=== PATIENT | male | born 1955 | race Two or more races ===

== ENCOUNTER 2019-08-08 00:56 | Emergency (ER) | payer OTHER ==
[~2019-08-08] VITALS: Ht 180.3 cm; Wt 100.0 kg
[2019-08-08] MEDS ORDERED: normal saline 1000ML IV soln IVB ONE (01:50)
[2019-08-08] MEDS ORDERED: morphine 4 MG/ML inj SYRINge IV PRN (01:50)
[2019-08-08] MEDS ORDERED: ondansetron/PF 4mg/2ml inj IV ONE (01:50)
[2019-08-08 02:11] LABS: BASOPHILS # (AUTO) 0.1 X10'3 (0-0.2); BASOPHILS % (AUTO) 1.3 % (0-1); EOSINOPHILS # (AUTO) 0.2 X10'3 (0-0.9); EOSINOPHILS % (AUTO) 2.3 % (0-6); HEMATOCRIT 44.1 % (42.0-52.0); HEMOGLOBIN 15.1 g/dl (14.0-17.9); LYMPHOCYTES # (AUTO) 3.2 X10'3 (1.1-4.8); LYMPHOCYTES % (AUTO) 42.7 % (21-51); MEAN CORPUSCULAR HEMOGLOBIN 30.6 PG (27.0-31.0); MEAN CORPUSCULAR HGB CONC 34.2 g/dL (33.0-36.5); MEAN CORPUSCULAR VOLUME 89.4 FL (78-98); MEAN PLATELET VOLUME 7.1 FL (7.4-10.4); MONOCYTES # (AUTO) 0.5 X10'3 (0-0.9); MONOCYTES % (AUTO) 6.9 % (2-12); NEUTROPHILS # (AUTO) 3.5 X10'3 (1.8-7.7); NEUTROPHILS % (AUTO) 46.8 % (42-75); PLATELET COUNT 195 X10'3 (140-440); RED BLOOD COUNT 4.93 X10'6 (4.70-6.10); RED CELL DISTRIBUTION WIDTH 13.4 % (11.5-14.5); WHITE BLOOD COUNT 7.4 X10'3 (4.5-11.0)
[2019-08-08 02:30] LABS: ALANINE AMINOTRANSFERASE 41 U/L (12-78); ALBUMIN 3.4 G/DL (3.4-5.0); ALBUMIN/GLOBULIN RATIO 1.1 (1.1-1.5); ALKALINE PHOSPHATASE 54 IU/L (46-116); ANION GAP 8 (8-16); ASPARTATE AMINO TRANSFERASE 15 U/L (10-37); BILIRUBIN,TOTAL 0.2 MG/DL (0.1-1.0); BLOOD UREA NITROGEN 15 MG/DL (7-18); BUN/CREATININE RATIO 13.2 (5.4-32.0); CALCIUM 8.5 MG/DL (8.5-10.1); CHLORIDE 108 MMOL/L (99-107); CREATININE 1.14 MG/DL (0.60-1.10); GLUCOSE 124 MG/DL (70-104); LIPASE 140 U/L (73-393); POTASSIUM 4.1 MMOL/L (3.5-5.1); SODIUM 141 MMOL/L (135-145); TOTAL CARBON DIOXIDE 25.5 MMOL/L (24-32); TOTAL PROTEIN 6.4 G/DL (6.4-8.2); eGFR 65 ML/MIN
[2019-08-08 03:36] VITALS: BP 118/74
[2019-08-09] MEDS ORDERED: RANI150T8 PO (13:29)
[2019-08-09] MEDS ORDERED: ACET-2119 PO (13:29)
[2019-08-09] MEDS ORDERED: NICO-687 TD (13:29)
[2019-08-09] MEDS ORDERED: DIPH25CA83 PO (13:29)
[2019-08-09] MEDS ORDERED: NICO2GUM29 PO (13:29)
[2019-08-09] MEDS ORDERED: GABA-532 PO (13:29)
[2019-08-09] MEDS ORDERED: CITA40TA22 PO (13:29)
[2019-08-09] MEDS ORDERED: CHOL100044 PO (13:35)
== END 2019-08-08 03:37 | disposition home or self-care (01) ==
LOC: ER 00:59
DX: R10.31 Right lower quadrant pain (principal); J44.9 Chronic obstructive pulmonary disease, unspecified; R19.7 Diarrhea, unspecified; E11.9 Type 2 diabetes mellitus without complications; Z88.5 Allergy status to narcotic agent
CPT/HCPCS: 36415; 74176; 80053; 83690; 85025; 96361; 96374; 96375; 99284; J2270; J2405; J7030

== ENCOUNTER 2019-08-09 12:08 | Observation (INO) | payer OTHER ==
[2019-08-09] VITALS (13 sets, daily range): BP systolic 103–126; BP diastolic 54–84
[~2019-08-09] VITALS: Ht 177.8 cm; Wt 102.3 kg
--- NOTE | 2019-08-09 13:19 | NUR ---
Received call from surgery. OR will be able to sweet pickle maker Pt between [phone] to take for surgery. NPO order to be faxed over.
[2019-08-09] MEDS ORDERED: RANI150T8 PO (13:29)
[2019-08-09] MEDS ORDERED: CITA40TA22 PO (13:29)
[2019-08-09] MEDS ORDERED: NICO2GUM29 PO (13:29)
[2019-08-09] MEDS ORDERED: DIPH25CA83 PO (13:29)
[2019-08-09] MEDS ORDERED: GABA-532 PO (13:29)
[2019-08-09] MEDS ORDERED: ACET-2119 PO (13:29)
[2019-08-09] MEDS ORDERED: NICO-687 TD (13:29)
[2019-08-09] MEDS ORDERED: CHOL100044 PO (13:35)
[2019-08-09] MEDS ORDERED: ketorolac tromethamine 15mg/ml inj. IV ONE (13:35)
[2019-08-09] MEDS ORDERED: ondansetron/PF 4mg/2ml inj IV ONE (14:35)
[2019-08-09] MEDS ORDERED: morphine 4 MG/ML inj SYRINge IV ONE (14:35)
[2019-08-09] MEDS ORDERED: BUPIVAcaine/PF 2.5 mg/ml (0.25%) 30ml vial ONE (15:49)
[2019-08-09] MEDS ORDERED: ceFAZolin 1000mg inj ONE ×3 (15:49→16:36)
--- NOTE | 2019-08-09 15:57 | NUR ---
OR at bedside
[2019-08-09] MEDS ORDERED: sevoflurane 250ml liquid IH ONE (16:15)
[2019-08-09] MEDS ORDERED: ondansetron/PF 4mg/2ml inj ONE (16:15)
[2019-08-09] MEDS ORDERED: fentaNYL /PF 50mcg/ml 5ml ampule ONE (16:22)
[2019-08-09] MEDS ORDERED: midazolam 2 mg/2 ml injection ONE (16:22)
[2019-08-09] MEDS ORDERED: rocuronium 10mg/ml inj IV ONE (16:24)
[2019-08-09] MEDS ORDERED: LIDOcaine 2% (20mg/ml) 5ml vial ONE (16:25)
[2019-08-09] MEDS ORDERED: propofol inj 20 ML IV ONE (16:25)
[2019-08-09] MEDS ORDERED: ringers solution, lacted 1,000 ML IV SCH (16:58)
[2019-08-09] MEDS ORDERED: morphine 4 MG/ML inj SYRINge IV PRN ×2 (17:00)
[2019-08-09] MEDS ORDERED: ondansetron/PF 4mg/2ml inj IV PRN ×2 (17:00→17:40)
[2019-08-09] MEDS ORDERED: meperidine/PF 25mg/ml syringe IV PRN ×3 (17:00)
[2019-08-09] MEDS ORDERED: proCHLORperazine 10 MG/2 ml inj IV PRN (17:00)
[2019-08-09] MEDS ORDERED: dexamethasone sod phosphate 4mg/ml inj. ONE (17:08)
[2019-08-09] MEDS ORDERED: glycopyrrolate 0.2mg/ml inj ONE (17:32)
[2019-08-09] MEDS ORDERED: ketorolac trometh. 30mg/ml inj. ONE (17:36)
[2019-08-09] MEDS ORDERED: magnesium hydroxide 30ml (MOM) UD suspension PO PRN (17:40)
[2019-08-09] MEDS ORDERED: mag hydrox/Alum hydrox/simeth 30ml oral suspension PO PRN (17:40)
[2019-08-09] MEDS ORDERED: morphine 2 MG/ML inj. syringe IV PRN (17:40)
[2019-08-09] MEDS ORDERED: HYDROcodone/acetaminophen 5mg/325mg tablet PO PRN (17:40)
[2019-08-09] MEDS ORDERED: acetaminophen 325mg tablet PO PRN (17:40)
--- NOTE | 2019-08-09 17:45 | NUR ---
Received from OR via BED , accompanied by Anesthesiologist DR FOUNTAIN and report given by Anesthesiolgist. PATIENT WAKING UP, DENIES PAIN, V/S WNL, NEUROVASCULAR CHECKS INTACT, 20G PIV RUE, SCD ON, BANDAIDS TO LAP SIGHTS OF ABDOMEN CDI.
--- NOTE | 2019-08-09 18:30 | NUR ---
Patient in room [facility] 357. I have received report from power and recovery supervisor and had the opportunity to ask questions and will assume patient care upon arrival to room 357A. Addendum: 08/09/19 at 1911 by Jodi Rojas RN Amended: Links added.
--- NOTE | 2019-08-09 18:35 | NUR ---
PATIENT A&0X4, DENIES PAIN, V/S WNL, NEUROVASCULAR CHECKS INTACT, 20G PIV RUE, SCD ON, BANDAIDS TO LAP SIGHTS OF ABDOMEN CDI. pATIENT TAKEN TO SURGICAL AND HOOKED UP TO MONITORS IN ROOM AND REPORT GIVEN TO INSTRUMENT DESIGNER WHO HAS TAKEN OVER PATIENT CARE.
--- NOTE | 2019-08-09 18:55 | NUR ---
pt arrived in the bed on the floor. no complaints at this time. orientated to the room call light in hand and postop vitals started. pt given ice chips to suck on.
--- NOTE | 2019-08-09 19:15 | NUR ---
2 large bandaides to abd noted dry and intact. pt given sips of water.
[2019-08-09] MEDS: heparin, porcine 5000 units/ml vial SQ SCH (20:00)
--- NOTE | 2019-08-09 21:00 | NUR ---
watching tv no complaints given chicken broth per request.
[2019-08-09] MEDS: HYDROcodone/acetaminophen 10/325mg tab PO PRN (22:00)
--- NOTE | 2019-08-09 22:00 | NUR ---
medicated for pain with po norco then assisted pt in getting up to ambulate in the ward did 3 laps 900ft tolerated well. assisted in getting back to bed and jello given started to hear a few sluggish bowel sounds right mid quad. is teaching done and pitcher of water given to the pt.
--- NOTE | 2019-08-10 00:20 | NUR ---
pt had accidently pulled his iv out. up in halls ambulating x4 laps 120feet and then back to bed and new iv start right forearm x1 stick and then medicated for c/o abd pain with 2mg of morphine for it. 0020 to 012o.
--- NOTE | 2019-08-10 02:00 | NUR ---
pt resting without changes
--- NOTE | 2019-08-10 04:00 | NUR ---
up ambulating in the ward.
[2019-08-10] MEDS: normal saline 1000ml 1,000 ML IV SCH ×3 (05:14→13:38)
--- NOTE | 2019-08-10 05:21 | NUR ---
pt using Is unit 3000 to 4000 x5.
[2019-08-10 06:30] VITALS: BP 109/75
[2019-08-10 06:33] LABS: HEMOGLOBIN A1C 5.5 % (4.5-6.2)
[2019-08-10 06:37] LABS: BASOPHILS % (AUTO) 0.1 % (0-1); EOSINOPHILS % (AUTO) 0 % (0-6); HEMATOCRIT 42.1 % (42.0-52.0); HEMOGLOBIN 14.4 g/dl (14.0-17.9); LYMPHOCYTES % (AUTO) 10.3 % (21-51); MEAN CORPUSCULAR HEMOGLOBIN 30.7 PG (27.0-31.0); MEAN CORPUSCULAR HGB CONC 34.1 g/dL (33.0-36.5); MEAN CORPUSCULAR VOLUME 90.1 FL (78-98); MEAN PLATELET VOLUME 7.8 FL (7.4-10.4); MONOCYTES # (AUTO) 0.2 X10'3 (0-0.9); MONOCYTES % (AUTO) 2.2 % (2-12); NEUTROPHILS # (AUTO) 8.2 X10'3 (1.8-7.7); NEUTROPHILS % (AUTO) 87.4 % (42-75); PLATELET COUNT 197 X10'3 (140-440); RED BLOOD COUNT 4.67 X10'6 (4.70-6.10); RED CELL DISTRIBUTION WIDTH 13.2 % (11.5-14.5); WHITE BLOOD COUNT 9.4 X10'3 (4.5-11.0)
--- NOTE | 2019-08-10 06:40 | NUR ---
Patient in room [facility] 357. I have received report from JADE Zapata and had the opportunity to ask questions and assume patient care.
--- NOTE | 2019-08-10 06:48 | NUR ---
Problems reprioritized. Patient report given, questions answered & plan of care reviewed with Jad Mora pt met with her and up again to walk the halls the 4th time since arriving to the floor. pt did pass sm amount of gas. jad will address pt's need for nicotine gum and patch and address the brown.. Addendum: 08/10/19 at 0652 by Jodi Rojas RN Amended: Links added.
[2019-08-10 06:50] LABS: ALBUMIN 3.2 G/DL (3.4-5.0); ANION GAP 13 (8-16); BLOOD UREA NITROGEN 18 MG/DL (7-18); BUN/CREATININE RATIO 18.2 (5.4-32.0); CALCIUM 8.2 MG/DL (8.5-10.1); CHLORIDE 104 MMOL/L (99-107); CREATININE 0.99 MG/DL (0.60-1.10); GLUCOSE 128 MG/DL (70-104); POTASSIUM 4.2 MMOL/L (3.5-5.1); SODIUM 139 MMOL/L (135-145); TOTAL CARBON DIOXIDE 22.1 MMOL/L (24-32); eGFR 76 ML/MIN
[2019-08-10] MEDS: heparin, porcine 5000 units/ml vial SQ SCH (10:00)
[2019-08-10] MEDS ORDERED: nicotine prolacrilex 2mg gum BC PRN (10:10)
[2019-08-10] MEDS: HYDROcodone/acetaminophen 10/325mg tab PO PRN (10:13)
[2019-08-10] MEDS ORDERED: NICOTINE 2MG GUM PO PRN (10:15)
[2019-08-10 11:00] VITALS: BP 124/77
--- NOTE | 2019-08-10 14:15 | NUR ---
DC inst provided to pt. IV DC'd, tip intact.
== END 2019-08-10 14:54 | disposition home or self-care (01) ==
LOC: ER 12:08 → SUR 3N 19:00
PROVIDERS: ADMIT Family Medicine; ATTEND Family Medicine
DX: K40.90 Unilateral inguinal hernia, without obstruction or gangrene, not specified as recurrent (principal); J44.9 Chronic obstructive pulmonary disease, unspecified; E11.9 Type 2 diabetes mellitus without complications; F32.9 Major depressive disorder, single episode, unspecified; Z90.79 Acquired absence of other genital organ(s); F17.210 Nicotine dependence, cigarettes, uncomplicated; Z79.899 Other long term (current) drug therapy; Z88.8 Allergy status to other drugs, medicaments and biological substances
CPT/HCPCS: 36415; 49650; 80048; 82948; 83036; 85025; 87081; 93005; 96372; 96374; 96375; 96376; 97161; 97530; 99284; C1713; C1781; G0378; J0690; J1100; J1644; J1885; J2001; J2175; J2250; J2270; J2405; J2704; J3010; J3490; J7030; J7120; A4215; A4314; A4618

== ENCOUNTER 2022-09-20 05:46 | Inpatient (IN) | payer OTHER ==
[2022-09-15 14:47] LABS: BASOPHILS # (AUTO) 0.1 X10'3 (0-0.2); BASOPHILS % (AUTO) 0.9 % (0-1); EOSINOPHILS # (AUTO) 0.2 X10'3 (0-0.9); EOSINOPHILS % (AUTO) 2.5 % (0-6); LYMPHOCYTES # (AUTO) 3.1 X10'3 (1.1-4.8); LYMPHOCYTES % (AUTO) 41.8 % (21-51); MEAN CORPUSCULAR HEMOGLOBIN 29.5 PG (27.0-31.0); MEAN CORPUSCULAR HGB CONC 33.7 g/dL (33.0-36.5); MEAN CORPUSCULAR VOLUME 87.4 FL (78-98); MEAN PLATELET VOLUME 7.4 FL (7.4-10.4); MONOCYTES # (AUTO) 0.6 X10'3 (0-0.9); MONOCYTES % (AUTO) 8.2 % (2-12); NEUTROPHILS # (AUTO) 3.5 X10'3 (1.8-7.7); NEUTROPHILS % (AUTO) 46.6 % (42-75); PRE OP HEMATOCRIT 47.7 % (42.0-52.0); PRE OP HEMOGLOBIN 16.1 g/dL (14.0-17.9); PRE OP PLATELET COUNT 255 X10'3 (140-440); RED BLOOD COUNT 5.45 X10'6 (4.70-6.10); RED CELL DISTRIBUTION WIDTH 13.9 % (11.5-14.5)
[2022-09-15 14:48] LABS: HEMOGLOBIN A1C 6.2 % (4.5-6.2)
[2022-09-15 14:59] LABS: ALBUMIN 3.7 G/DL (3.4-5.0); ALBUMIN/GLOBULIN RATIO 1.1 (1.1-1.5); ALKALINE PHOSPHATASE 67 IU/L (46-116); BLOOD UREA NITROGEN 11 MG/DL (7-18); BUN/CREATININE RATIO 9.2 (5.4-32.0); CALCIUM 8.7 MG/DL (8.5-10.1); CHLORIDE 104 MMOL/L (99-107); CREATININE 1.19 MG/DL (0.60-1.10); PRE OP ALT 51 U/L (30-65); PRE OP ANION GAP 11 (8-16); PRE OP AST 16 U/L (10-37); PRE OP BILIRUB, TOTAL 0.2 MG/DL (0.0-1.0); PRE OP GLUCOSE 171 MG/DL (70-104); PRE OP POTASSIUM 4.3 MMOL/L (3.4-5.1); PRE OP SODIUM 139 MMOL/L (135-145); TOTAL CARBON DIOXIDE 24.2 MMOL/L (24-32); eGFR 61 ML/MIN
[~2022-09-20] VITALS: Ht 177.8 cm; Wt 107.0 kg
[2022-09-20] VITALS (18 sets, daily range): BP systolic 103–150; BP diastolic 70–87
[~2022-09-20 05:46] MED LIST: ACET-75 PO; ALBU8HFA PO; CETI10TA15 PO; CHOL100044 PO; CITA40TA22 PO; CYAN250010 PO; DICL20GE TOP; GABA-532 PO; KETO5DRO11 OP; MELA3TAB39 PO; METF-436 PO; OMEP40CA21 PO; TIOT18CA3 INH; albuterol 2.5 MG/3 ML nebule NEB ONE; ceFAZolin inj. 2,000 MG in dextrose 5%-water 100 ML IV ONE; famotidine 20mg tablet PO ONE; ringers solution, lacted 1,000 ML IV SCH; tranexamic acid 650mg tablet PO ONE; vancomycin 1,500 MG in NS 300ml IV soln IV ONE
--- NOTE | 2022-09-20 06:30 | NUR ---
PREPPED PT FOR SURGERY, PEDAL PULSES STRONG, MARKED. CMS GOOD IN BOTH LOWER EXTREMITIES PT IS COMPLAINING OF ANXIETY. PT STATES THAT HE USED THE SPECIAL SOAP TO SHOWER WITH FOR THE PAST 5 DAYS INCLUDING THIS MORNING. HE ALSO USED THE MURPURICIN OINTMENT IN HIS NOSE. PT STATES HE READ THE PACKAGE OF INFORMATION AND WATCHED THE ONLINE VIDEO OF THE PROCEDURE. PT ALSO DRANK COFFEE WITH CREAMER AT 0130. DR BOBO NOTIFIED, NO ADDITIONAL ORDERS RECEIVED.
[2022-09-20] MEDS ORDERED: ketorolac trometh. 30mg/ml inj. ONE (08:01)
[2022-09-20] MEDS ORDERED: ROPIVAcaine 0.5% (5mg/ml) 30ml vial ONE ×3 (08:01→08:36)
[2022-09-20] MEDS ORDERED: cloNIDine hcl/PF 100mcg/ml inj ONE (08:36)
[2022-09-20] MEDS ORDERED: fentaNYL/PF 50MCG/1 ML 2ML syringe ONE (08:59)
[2022-09-20] MEDS ORDERED: MIDAZolam 1 MG/ML 5ML VIAL ONE (08:59)
[2022-09-20] MEDS ORDERED: morphine /PF 1mg/ml 10ml inj. ONE (09:00)
[2022-09-20] MEDS ORDERED: propofol inj 20 ML IV ONE ×5 (10:00→11:13)
[2022-09-20] MEDS ORDERED: dexamethasone sod phosphate 4mg/ml inj. ONE (10:01)
[2022-09-20] MEDS ORDERED: ePHEDrine 50MG/ML INJ. ONE (10:01)
[2022-09-20] MEDS ORDERED: naloxone 0.4 mg/ml inj IV PRN ×2 (11:25→12:20)
[2022-09-20] MEDS ORDERED: ringers solution, lacted 1,000 ML IV SCH (11:25)
[2022-09-20] MEDS ORDERED: morphine 4 MG/ML inj SYRINge IV PRN (11:25)
[2022-09-20] MEDS ORDERED: labetalol 20mg/4ml (5mg/ml) syringe IV PRN (11:25)
[2022-09-20] MEDS ORDERED: hydrALAZINE 20mg/ml inj. IV PRN (11:25)
[2022-09-20] MEDS ORDERED: meperidine/PF 25mg/ml syringe IV PRN (11:25)
[2022-09-20] MEDS ORDERED: morphine 2 MG/ML inj. syringe IV PRN (11:25)
[2022-09-20] MEDS ORDERED: HYDROmorphone/PF 0.2 MG/ML SYRINGE IV PRN ×2 (11:25)
[2022-09-20] MEDS ORDERED: ondansetron/PF 4mg/2ml inj IV PRN ×3 (11:25→12:20)
[2022-09-20] MEDS ORDERED: diphenhydrAMINE 50 mg/ml inj IV PRN (11:25)
[2022-09-20] MEDS ORDERED: proCHLORperazine 10 MG/2 ml inj IV PRN (11:25)
[2022-09-20] MEDS ORDERED: acetaminophen 1,000mg/100ml IV 100 ML IV PRN (11:25)
[2022-09-20] MEDS ORDERED: diphenhydrAMINE 50 mg/ml inj ONE (11:27)
[2022-09-20] MEDS ORDERED: cetirizine 10mg tablet PO PRN (12:20)
[2022-09-20] MEDS ORDERED: acetaminophen 325mg tablet PO PRN (12:20)
[2022-09-20] MEDS ORDERED: HYDROmorphone inj. 0.5 MG/0.5 ML DISP.SYRIN IV PRN (12:20)
[2022-09-20] MEDS ORDERED: HYDROmorphone 1 mg/ml syringe IV PRN (12:20)
[2022-09-20] MEDS: potassium cl 20mEq in 1/2 NS 1,000 ML IV SCH ×2 (12:20→16:16)
[2022-09-20] MEDS ORDERED: bisacodyl 10mg suppository rectal RC PRN (12:20)
[2022-09-20] MEDS ORDERED: non-formulary drug (Acetaminophen 2 TAB) PO PRN (12:20)
[2022-09-20] MEDS ORDERED: magnesium hydroxide 30ml (MOM) UD suspension PO PRN (12:20)
[2022-09-20] MEDS ORDERED: Ketotifen Fumarate OP PRN (12:20)
[2022-09-20] MEDS ORDERED: HYDROcodone/acetaminophen 10/325mg tab PO PRN ×2 (12:20)
[2022-09-20] MEDS ORDERED: DICLOFENAC SODIUM TOP PRN (12:20)
[2022-09-20] MEDS ORDERED: diphenhydrAMINE 25mg capsule PO PRN ×2 (12:20)
[2022-09-20] MEDS ORDERED: oxyCODONE IR 5mg (immed. release) tablet PO PRN (12:20)
--- NOTE | 2022-09-20 12:20 | NUR ---
Received from OR via BED, accompanied by Anesthesiologist and report given by Anesthesiologist. PATIENT WAKING UP, NO S/S OF PAIN, V/S WNL, SCD ON, 18G TO LUE, drsg to LEFT KNEE CDI with POWDER PACK COLD. NEUROVASCULAR CHECKS INTACT
[2022-09-20] MEDS ORDERED: albuterol 2.5 MG/3 ML nebule NEB PRN (12:55)
[2022-09-20] MEDS: naloxone 2mg/2ml inj 2 MG in normal saline 500ml IV soln 500 ML IV PRN ×2 (13:00→13:37)
--- NOTE | 2022-09-20 13:20 | NUR ---
PATIENT A&OX4, DENIES PAIN, V/S WNL, SCD ON, 18G TO LUE, drsg to LEFT KNEE CDI with POWDER PACK COLD. NEUROVASCULAR CHECKS INTACT.PATIENT TAKEN TO ROOM WITH ALL BELONGINGS AND HOOKED UP TO MONITORS IN ROOM AND GIVEN CALL LIGHT, REPORT GIVEN TO RN WHO HAS TAKEN OVER PATIENT CARE.
--- NOTE | 2022-09-20 13:30 | NUR ---
Recived report from Salvador HANSEN, Patient setteled in room, call light given and education on how to use. Post-op Vitals started.
[2022-09-20] MEDS ORDERED: acetaminophen 325mg tablet PO SCH (14:00)
[2022-09-20] MEDS ORDERED: ipratropium 0.5 MG/2.5ML nebule IH SCH (14:00)
[2022-09-20] MEDS ORDERED: ceFAZolin/D5W- 1GM premix 50 ML IV SCH (16:00)
--- NOTE | 2022-09-20 17:37 | NUR ---
f/c d/c per Dr Ding verbal order
--- NOTE | 2022-09-20 18:47 | NUR ---
Received report of Verbal order for ok to discharge once Jacobs removed and Patient has voided.
--- NOTE | 2022-09-20 18:48 | NUR ---
Problems reprioritized. Patient report given, questions answered & plan of care reviewed with Gayla TRAN.
--- NOTE | 2022-09-20 19:25 | NUR ---
dcd iv ,pt christie pain.no complications noted.
--- NOTE | 2022-09-20 19:52 | NUR ---
Pt discharged at 1950 per wheelchair with family, in stable condition. Pt had belongings with him and DC instructions givn. All questions answerd.
[2022-09-20] MEDS ORDERED: metFORMIN 500mg tablet PO SCH (20:00)
[2022-09-20] MEDS ORDERED: vancomycin/NS 1 GM ADD-VANTAGE 250 ML IV SCH (20:00)
[2022-09-20] MEDS ORDERED: gabapentin 300mg capsule PO SCH (21:00)
[2022-09-20] MEDS ORDERED: citalopram 20mg tablet PO SCH (21:00)
[2022-09-20] MEDS ORDERED: Melatonin 3mg tablet PO SCH (21:00)
[2022-09-20] MEDS ORDERED: sennosides 8.6mg tablet PO SCH (21:00)
[2022-09-21] MEDS ORDERED: pantoprazole 40mg Tablet.DR PO SCH (08:00)
[2022-09-21] MEDS ORDERED: cholecalciferol (vitamin D3) 1,000 unit (25mcg) tablet PO SCH (08:00)
[2022-09-21] MEDS ORDERED: cyanocobalamin 500mcg tablet PO SCH (08:00)
[2022-09-21] MEDS ORDERED: aspirin 325mg tablet PO SCH (08:30)
[2022-09-22] MEDS ORDERED: acetaminophen 325mg tablet PO PRN (12:20)
== END 2022-09-20 19:50 | disposition home or self-care (01) | DRG 470 ==
LOC: PAS IN 05:46 → SUR 3N 13:23
PROVIDERS: ADMIT Orthopaedic Surgery; ATTEND Orthopaedic Surgery
PROC: 0SRD0J9 Replacement of Left Knee Joint with Synthetic Substitute, Cemented, Open Approach (ICD-10-PCS; principal; 2022-09-20 08:54)
DX: M17.32 Unilateral post-traumatic osteoarthritis, left knee (principal)
CPT/HCPCS: 36415; 80053; 82948; 83036; 85025; 87081; 93005; 94640; 94760; 97116; 97161; A4215; A7000; C1713; C1758; C1776; G0378; J0690; J0735; J1100; J1170; J1200; J1885; J2250; J2274; J2310; J2704; J2795; J3010; J3370; J3480; J3490; J7040; J7060; J7120

== ENCOUNTER 2022-09-30 18:01 | Emergency (ER) | payer OTHER, MEDICARE, MEDICAID ==
[~2022-09-30] VITALS: Ht 180.3 cm; Wt 109.0 kg
[~2022-09-30 18:01] MED LIST changes: -albuterol 2.5 MG/3 ML nebule NEB ONE; -ceFAZolin inj. 2,000 MG in dextrose 5%-water 100 ML IV ONE; -famotidine 20mg tablet PO ONE; -ringers solution, lacted 1,000 ML IV SCH; -tranexamic acid 650mg tablet PO ONE; -vancomycin 1,500 MG in NS 300ml IV soln IV ONE
[2022-09-30 18:43] VITALS: BP 139/88
[2022-09-30 19:37] LABS: EOSINOPHILS # (AUTO) 0.3 X10'3 (0-0.9); HEMOGLOBIN 10.8 g/dl (14.0-17.9); MEAN PLATELET VOLUME 6.8 FL (7.4-10.4)
[2022-09-30 19:39] LABS: BASOPHILS % (AUTO) 0.9 % (0-1); EOSINOPHILS % (AUTO) 5.5 % (0-6); HEMATOCRIT 31.9 % (42.0-52.0); LYMPHOCYTES # (AUTO) 1.3 X10'3 (1.1-4.8); MEAN CORPUSCULAR HEMOGLOBIN 29.3 PG (27.0-31.0); MEAN CORPUSCULAR HGB CONC 33.9 g/dL (33.0-36.5); MEAN CORPUSCULAR VOLUME 86.7 FL (78-98); MONOCYTES # (AUTO) 0.6 X10'3 (0-0.9); MONOCYTES % (AUTO) 11.6 % (2-12); NEUTROPHILS # (AUTO) 3.1 X10'3 (1.8-7.7); PLATELET COUNT 275 X10'3 (140-440); RED BLOOD COUNT 3.68 X10'6 (4.70-6.10); RED CELL DISTRIBUTION WIDTH 13.7 % (11.5-14.5); WHITE BLOOD COUNT 5.3 X10'3 (4.5-11.0)
[2022-09-30 19:59] LABS: ALANINE AMINOTRANSFERASE 27 U/L (12-78); ALBUMIN 3.1 G/DL (3.4-5.0); ALBUMIN/GLOBULIN RATIO 0.8 (1.1-1.5); ALKALINE PHOSPHATASE 68 IU/L (46-116); ANION GAP 7 (8-16); ASPARTATE AMINO TRANSFERASE 15 U/L (10-37); BILIRUBIN,TOTAL 0.4 MG/DL (0.1-1.0); BLOOD UREA NITROGEN 12 MG/DL (7-18); BUN/CREATININE RATIO 13.5 (5.4-32.0); C-REACTIVE PROTEIN 7.42 MG/DL (0.0-0.5); CHLORIDE 102 MMOL/L (99-107); CREATININE 0.89 MG/DL (0.60-1.10); GLUCOSE 154 MG/DL (70-104); POTASSIUM 4.4 MMOL/L (3.5-5.1); SODIUM 136 MMOL/L (135-145); TOTAL CARBON DIOXIDE 26.7 MMOL/L (24-32); TOTAL PROTEIN 6.9 G/DL (6.4-8.2); eGFR 85 ML/MIN
== END 2022-09-30 21:10 | disposition left against medical advice (07) ==
LOC: ER 18:02
DX: T81.9XXA Unspecified complication of procedure, initial encounter (principal); Z53.21 Procedure and treatment not carried out due to patient leaving prior to being seen by health care provider
CPT/HCPCS: 36415; 80053; 82948; 83605; 85025; 85651; 86140; 87040

== ENCOUNTER 2022-10-02 10:30 | Emergency (ER) | payer OTHER, MEDICARE, MEDICAID ==
[~2022-10-02] VITALS: Ht 179.1 cm; Wt 107.7 kg
[2022-10-02 10:49] VITALS: BP 135/79
[2022-10-02] MEDS ORDERED: ketorolac tromethamine 15mg/ml inj. IM ONE (12:00)
[2022-10-02] MEDS ORDERED: morphine 4 MG/ML inj SYRINge IM ONE (12:00)
[2022-10-02] MEDS ORDERED: ondansetron 4mg rapidly disintigrating tab PO ONE (12:08)
[2022-10-02] MEDS ORDERED: HYDR-3965 PO (12:19)
[2022-10-02] MEDS ORDERED: ONDA4TAB12 PO (12:19)
== END 2022-10-02 12:38 | disposition home or self-care (01) ==
LOC: ER 10:31
DX: M25.562 Pain in left knee (principal); J44.9 Chronic obstructive pulmonary disease, unspecified; E11.9 Type 2 diabetes mellitus without complications; Z88.5 Allergy status to narcotic agent; Z88.8 Allergy status to other drugs, medicaments and biological substances
CPT/HCPCS: 96372; 99284; J1885; J2270